=== PATIENT | male | born 1960 | race Caucasian/White ===

== ENCOUNTER 2020-07-14 11:59 | Emergency (ER) | payer BC ==
[2020-07-14 12:15] VITALS: TEMP 97.4
--- NOTE | 2020-07-14 12:47 | XR ---
EXAMINATION TYPE: XR hand complete LT DATE OF EXAM: 07/14/2020 CLINICAL HISTORY: Hand caught in car fan TECHNIQUE: Frontal, lateral and oblique images of the left hand are obtained. COMPARISON: None. FINDINGS: There is no acute fracture/dislocation evident in the left hand. The joint spaces in the l eft hand appear within normal limits. Laceration of overlying soft tissues at the distal second digit . IMPRESSION: 1. No evidence of acute fracture or dislocation of the left second digit at the site of injury. There is overlying soft tissue laceration. No radiopaque foreign body.
[2020-07-14] MEDS: LIDOCAINE 1% INJ 10MG/ML (20 ML MDV) SQ ONE (13:02)
[2020-07-14] MEDS: BACITRACIN OINT 1 EACH PACKET TOPICAL ONE (13:02)
[2020-07-14] MEDS: DIPH,PERTUS(ACELL)TETVAC-LF 0.5 ML VIAL IM ONE (13:03)
--- NOTE | 2020-07-14 14:28 | ED ---
Wound/Laceration HPI - General Chief Complaint: Wound/Laceration Stated Complaint: finger lac Time Seen by Provider: 07/14/20 12:28 Source: patient Mode of arrival: ambulatory Limitations: no limitations - History of Present Illness Initial Comments: Patient is a 60-year-old male presenting to the emergency Department with complaints of lacerations to his left second and third digits. Patient states that he was working on a fan in a car when it affect his hand into the fan. Patient states this happened about 30 minutes prior to arrival. He is unsure of his tetanus vaccine. He is not on blood thinners. Bleeding is controlled with bandage at this time. He has no further complaints. - Related Data Home Medications Medication Instructions Recorded Confirmed Ascorbic Acid [Vitamin C] 500 mg PO DAILY 07/14/20 07/14/20 Multivitamins, Thera [Multivitamin 1 tab PO DAILY 07/14/20 07/14/20 (formulary)] Previous Rx's Medication Instructions Recorded Cephalexin [Keflex] 500 mg PO Q6HR 7 Days #28 cap 07/14/20 Allergies Allergy/AdvReac Type Severity Reaction Status Date / Time No Known Allergies Allergy Verified 07/14/20 13:56 Review of Systems ROS Statement: Those systems with pertinent positive or pertinent negative responses have been documented in the HPI. ROS Other: All systems not noted in ROS Statement are negative. Past Medical History Past Medical History: No Reported History History of Any Multi-Drug Resistant Organisms: None Reported Past Surgical History: No Surgical Hx Reported Past Psychological History: No Psychological Hx Reported Smoking Status: Never smoker Past Alcohol Use History: None Reported Past Drug Use History: None Reported General Exam - General Exam Comments Initial Comments: GENERAL: Patient is well-developed and well-nourished. Patient is nontoxic and in no acute distress. HEAD: Atraumatic, normocephalic. EYES: Pupils equal round and reactive to light, extraocular movements intact, sclera anicteric, conjunctiva are normal. Eyelids were unremarkable. ENT: TMs normal, nares patent, oropharynx clear without exudates. Moist mucous membranes. NECK: Normal range of motion, supple without lymphadenopathy or JVD. LUNGS: Unlabored respirations. Breath sounds clear to auscultation bilaterally and equal. No wheezes rales or rhonchi. HEART: Regular rate and rhythm without murmurs, rubs or gallops. ABDOMEN: Soft, nontender, normoactive bowel sounds. No guarding, no rebound. No masses appreciated. : Deferred MUSCULOSKELETAL: Patient has full range of motion of his left hand and fingers. He is neurovascular intact. Normal extremities with adequate strength and normal range of motion, no pitting or edema. No clubbing or cyanosis. NEUROLOGICAL: Patient is alert and oriented x 3. Motor and sensory are also intact. Cranial nerves II through XII grossly intact. Symmetrical smile. Normal speech, normal gait. PSYCH: Normal mood, normal affect. SKIN: Warm, Dry, normal turgor, no rashes. Patient has a large laceration, about 5 cm in length, to the left second digit, there is avulsion of the skin, no nail involvement. He has a second laceration, about 2 cm, to the left middle finger, at the distal and behind the nail. The nail seems to be intact. There is some minor avulsion of the skin as well. Bleeding is controlled at this time. Limitations: no limitations Course Vital Signs 07/14/20 12:06 Temperature 97.4 F L Pulse Rate 48 L Respiratory 18 Rate Blood Pressure 94/68 O2 Sat by Pulse 96 Oximetry Procedures - Laceration Laceration #1 Consent Obtained: verbal consent Indication: laceration Site: hand (Left index finger) Size (cm): 5 Description: flap, avulsion, irregular Depth: simple, single layer Anesthetic Used: lidocaine 1% Anesthesia Technique: nerve block Amount (mls): 4 Pre-repair: irrigated extensively Type of Sutures: nylon Size of Sutures: 5-0 Number of Sutures: 2 Technique: simple, interrupted Patient Tolerated Procedure: well Laceration #2 Consent Obtained: verbal consent Indication: laceration Site: hand (Left middle finger) Size (cm): 2 Description: flap, avulsion Depth: simple, single layer Anesthetic Used: lidocaine 1% Anesthesia Technique: nerve block Amount (mls): 4 Pre-repair: irrigated extensively Type of Sutures: nylon Size of Sutures: 4-0 Number of Sutures: 2 Technique: simple, interrupted Patient Tolerated Procedure: well - Orthopedic Splinting/Casting Injury #1 Side: left Upper Extremity Injury Location: finger Upper Extremity Immobilizer: finger (other) (Finger splint, left middle finger) Medical Decision Making - Medical Decision Making Patient is a 60-year-old male here with lacerations to his left second and third digits after his hand got caught in a car fan. His vitals are stable. We did update the patient's tetanus shot today. X-rays of the left hand reveal a nondisplaced fracture of the distal phalanx of the third digit noticed on the lateral view. Patient was given a shot of kefzol. The wounds were irrigated, I did attempt to repair the sutures on each of the fingers, there is a lot of avulsion of the skin. Did place a finger splint on the left middle finger sec ondary to the fracture. I will give them follow-up to our hand doctor. Patient's should alternate between Tylenol and Motrin for pain, swelling as well as based the area. I will give him a starter pack of tramadol for more severe pain. He is in agreement with this plan of care. Stitches need to removed in 7-10 days. He also needs to continue with the antibiotics. Return parameters were discussed with the patient and he verbalized understanding. Case discussed with Dr. Lott. Disposition Clinical Impression: Laceration of left index finger, Laceration of left middle finger with damage to nail, Fracture of distal phalanx of left middle finger Disposition: HOME SELF-CARE Condition: Stable Instructions (If sedation given, give patient instructions): Acute Wound Care (ED) Additional Instructions: Please return to the Emergency Department if symptoms worsen or any other concerns. Your tetanus vaccine was updated today. Take antibiotics as prescribed. Keep splint in place for protection of the finger and fracture. Sutures need to be removed in 7-10 days. Follow-up with hand doctor as discussed. Prescriptions: Cephalexin [Keflex] 500 mg PO Q6HR 7 Days #28 cap Is patient prescribed a controlled substance at d/c from ED?: No Referrals: Donald Segura DO [Primary Care Provider] - 1-2 days Andreas Jolley DO [Doctor of Osteopathic Medicine] - 1-2 days Time of Disposition: 14:28
[2020-07-14] MEDS: ceFAZolin 1,000 MG VIAL (IM USE) IM STA (14:31)
[2020-07-14] MEDS: traMADol 50 MG STARTER PACK 3 TAB BTL PO STA (14:34)
[2020-07-14 14:43] VITALS: BP 112/65; PULSE 65; RESP 20
== END 2020-07-14 14:43 | disposition home or self-care (01) ==
LOC: EC 11:59
DX: S62.633A Displaced fracture of distal phalanx of left middle finger, initial encounter for closed fracture (principal); S61.211A Laceration without foreign body of left index finger without damage to nail, initial encounter; W22.8XXA Striking against or struck by other objects, initial encounter; Y92.810 Car as the place of occurrence of the external cause; Z23 Encounter for immunization
CPT/HCPCS: 73130; 90715; 12002; 99283; 90471; 96372 ×2; J0690; J2001